=== PATIENT | male | born 1975 | race Caucasian/White ===

== ENCOUNTER 2017-08-14 20:04 | Observation (INO) | payer SELFPAY ==
[~2017-08-14] VITALS: Ht 175.3 cm; Wt 85.1 kg
--- NOTE | 2017-08-14 23:23 | NUR ---
PT ARRIVED FROM ED VIA STRETCHER, PT IS ALERT AND ORIENTED. COMPLETEING PT ADMISSION. PT REPORTS NO HEALTH HISTORY OTHER THAN A HERNIA REPAIR. PT IS REPORTING 8/10 PAIN, ADVISED HIM WILL NOTIFY HIS RN. CALL LIGHT IS WITHIN REACH, AND PT HAS NO FURTHER REQUESTS AT THIS TIME.
--- NOTE | 2017-08-15 00:09 | NUR ---
RECIEVED REPORT FROM BRETT MESA. PATIENT RESTING IN BED. C/O PAIN 8/10 IN HIS R BICEP, R HIP AND ABDOMEN. DILAUDID ADMINISTERED PER AUG. IVF INFUSING W/O DIFFICUTLY. LUNGS CLEAR, HR REGULAR, NO EDEMA. PATIENT C/O TINGLING IN R ARM. PALPABLE RADIAL PULSES. PATIENT ABLE TO WIGGLE FINGERS. R BICEP IS SWOLLEN. PATIENT STATES HE IS HUNGRY- OBTAINED BOXED LUNCH. HYDRATION GIVEN. DENIES FURTHER NEEDS. CALL LIGHT IN REACH.
--- NOTE | 2017-08-15 02:08 | NUR ---
PATIENT C/O PAIN IN R BICEP, R HIP AND ABDOMEN 01/26. PATIENT HOLDING ARM CLOSE TO BODY. STATES HIS ARM IS STILL TINGLING. RADIAL PULSES PALPABLE. PATIENT REQUESTING FOR ANOTHER BOXED LUNCH. SENIOR INTEGRATION ARCHITECT COVERING ICU, UNABLE TO OBTAIN AT THIS POINT. DELIVERED PEANUT BUTTER CRACKERS. PAIN MEDICATION ADMINISTERED PER AUG. DENIES FURTHER NEEDS. CALL LIGHT IN REACH.
--- NOTE | 2017-08-15 02:24 | NUR ---
SANDWICH BOX AND CHIPS GIVEN TO PT PER HIS REQUEST, PT WITHOUT OTHER REQUEST
--- NOTE | 2017-08-15 04:15 | NUR ---
PATIENT RESTING IN BED. STATES HE HAS PAIN IN HIS R BICEP 12/26. PAIN MEDICATION ADMINISTERED PER AUG. HE STATES HE FEELS "SORE ALL OVER." HIS L SHOULDER IS ALSO SORE. LUNGS CLEAR, HR REGULAR, ACTIVE BS. ABDOMEN IS SOFT AND NON-DISTENDED. PATIENT STATES HE HAD A BM YESTERDAY. DENIES FURTHER NEEDS, CALL LIGHT IN REACH.
--- NOTE | 2017-08-15 06:34 | NUR ---
ANSWERED PT'S CALL LIGHT AND ADMINISTERED DILAUDID 0.6MG. PT DENIES FURTHER NEEDS AT THIS TIME.
--- NOTE | 2017-08-15 07:30 | NUR ---
RECIEVED BEDSIDE REPORT FROM MOSHE CARRANZA. PT AWAKE, IN BED.
--- NOTE | 2017-08-15 08:44 | NUR ---
PATIENT LYING IN BED WITH LIGHTS DIMMED IN ROOM. PAIN REPORTED IN ABDOMEN OF 7/10 PAIN. UNABLE TO DISTINGUISH IF PAIN WAS MUSCULOSKELETAL OR INTERNAL. NEW IVF BAG HANGING NOW. DILAUDID 0.5MG GIVEN FOR PAIN. ATE BREAKFAST. TRAY REMOVED FROM ROOM. PUMP CLEARED OF INFUSED AMOUNT.
--- NOTE | 2017-08-15 09:43 | NUR ---
PATIENT RELAXING IN BEDM EYES CLOSED. VITALS DONE, FRSH WATER. PATIENT ASKED IF DR WOULD BE COMING BACK IN TODAY. CURB HOP IN ROOM ALSO.
--- NOTE | 2017-08-15 10:04 | NUR ---
PT IN BED. RATES PAIN TO ABDOMEN AND RIGHT BICEPS 5/10. DENIES NEEDS.
--- NOTE | 2017-08-15 10:59 | NUR ---
PT C/O 6/10 PAIN TO RIGHT BICEPS. GAVE DILAUDID 0.6 MG IV PRN ORDERED.
--- NOTE | 2017-08-15 11:25 | NUR ---
MED REC COMPLETE. NO CHRONIC HOME MEDICATIONS.
--- NOTE | 2017-08-15 12:25 | NUR ---
DR. OLEA DOWN TO SEE PT. DISCUSSED PLAN FOR PT TO DISCHARGE THIS SHIFT. PT NOW TAKING SHOWER.
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
== END 2017-08-15 13:15 | disposition home or self-care (01) ==
LOC: ED 20:04 → MS 20:06
PROVIDERS: ADMIT Colon & Rectal Surgery
DX: S46.211A Strain of muscle, fascia and tendon of other parts of biceps, right arm, initial encounter (principal); T14.8XXA Other injury of unspecified body region, initial encounter; F17.210 Nicotine dependence, cigarettes, uncomplicated; V86.52XA Driver of snowmobile injured in nontraffic accident, initial encounter; Y92.828 Other wilderness area as the place of occurrence of the external cause
CPT/HCPCS: 70450; 71260; 72125; 73060; 73502; 74177; 76882; 80053; 81001; 82150; 82550; 85025; 86850; 86900; 86901; 96361; 96374; 96375; 96376; 99285; G0378; G0480; J1170; J2405; J7030; J7120; Q9967

== ENCOUNTER 2017-08-29 17:19 | Emergency (ER) | payer SELFPAY ==
[~2017-08-29] VITALS: Ht 175.3 cm; Wt 85.1 kg
== END 2017-08-29 17:38 | disposition home or self-care (01) ==
LOC: ED 17:19
DX: L02.414 Cutaneous abscess of left upper limb (principal)